=== PATIENT | female | born 1970 ===

== ENCOUNTER 2017-01-16 08:45 | Observation (INO) | payer MEDICAID, OTHER ==
[2017-01-16 08:50] VITALS: BP 141/58; PULSE 81; TEMP 98; O2SAT 100
[2017-01-16 08:51] VITALS: BMI 29.9
--- NOTE | 2017-01-16 10:01 | ED PDOC ---
Lower Extremity Pain/Injury Time Seen by Provider: 01/16/17 09:05 Chief Complaint (Nursing): Lower Extremity Problem/Injury Chief Complaint (Provider): Lower Extremity Problem/Injury History Per: Patient History/Exam Limitations: no limitations Onset/Duration Of Symptoms: Days Current Symptoms Are (Timing): Still Present Severity: Moderate Additional Complaint(s): Patient is a 46 year old female who presents to ED for right upper thigh pain since last night. Patient states she works at [employer], stepped over a box yesterday and felt a pinch that area. Notes no pain initially, pain developed last night, took Motrin 600mg with no relief. This morning pain worsened, unable to sleep last night and difficult walking secondary to pain Past Medical History Reviewed: Historical Data, Nursing Documentation, Vital Signs Vital Signs: Last Vital Signs Temp 98 F 01/16/17 08:50 Pulse 81 01/16/17 08:50 Resp BP 141/58 L 01/16/17 08:50 Pulse Ox 100 01/16/17 08:50 - Medical History PMH: Asthma - Surgical History Surgical History: No Surg Hx - Family History Family History: States: No Known Family Hx - Living Arrangements Living Arrangements: With Family - Home Medications Home Medications: Ambulatory Orders Medication Instructions Recorded Guaifenesin [Mucinex] 1,200 mg PO BID #14 ter 01/19/15 Albuterol HFA [Ventolin HFA 90 2 puff IH Q4 PRN #1 unit 11/12/16 mcg/actuation (8 g)] Azithromycin [Zithromax] 250 mg PO DAILY #6 tab 11/12/16 Ibuprofen [Motrin] 600 mg PO TID PRN #30 tab 11/12/16 Methylprednisolone [Medrol Dose 4 mg PO DAILY #1 packet 11/12/16 Pack (21 tabs)] Cyclobenzaprine [Cyclobenzaprine 10 mg PO TID PRN #15 tab 01/16/17 HCl] Naproxen [Naprosyn] 500 mg PO BID PRN #15 tablet 01/16/17 - Allergies Allergies/Adverse Reactions: Allergies Allergy/AdvReac Type Severity Reaction Status Date / Time No Known Allergies Allergy Verified 11/12/16 13:26 Review of Systems Constitutional: Negative for: Weakness Cardiovascular: Negative for: Chest Pain Respiratory: Negative for: Shortness of Breath Gastrointestinal: Negative for: Nausea, Vomiting Musculoskeletal: Positive for: Leg Pain. Negative for: Back Pain, Foot Pain Skin: Negative for: Rash, Bruising Neurological: Negative for: Weakness, Numbness Physical Exam - Reviewed Nursing Documentation Reviewed: Yes Vital Signs Reviewed: Yes - Physical Exam Appears: Positive for: Non-toxic, No Acute Distress Skin: Positive for: Normal Color, Warm Eye Exam: Positive for: Normal appearance Neck: Positive for: Normal, Painless ROM Gastrointestinal/Abdominal: Positive for: Normal Exam. Negative for: Tenderness Back: Positive for: Normal Inspection. Negative for: Vertebral Tenderness Extremity: Positive for: Normal ROM, Tenderness (right medial inner thigh ). Negative for: Calf Tenderness, Swelling Neurologic/Psych: Positive for: Alert, Oriented. Negative for: Motor/Sensory Deficits - ECG O2 Sat by Pulse Oximetry: 100 (RA) Pulse Ox Interpretation: Normal - Other Rad XR R hip X-Ray: Read By Radiologist (Transverse subcapital lucency in the right femoral head concerning for acute nondisplaced fracture.) - CT Scan/US CT RLE Other Rad Studies (CT/US): Radiology Report Reviewed (No definite CT evidence of acute fracture at the right hip. Well corticated ossicles seen adjacent to the right acetabulum may represent soft tissue calcification or marginal osteophyte formation or less likely old fracture. The possibility of acute fracture at the left acetabulum is less likely. No evidence of significant soft tissue posttraumatic changes.) Medical Decision Making Medical Decision Making: Time: 934 Initial impression: Right high pain Initial plan: -- Urine preg -- Toradol IM and Flexeril PO Scribe Attestation: Documented by Chante Mike acting as a scribe for Leeanna Johnson MD MD Scribe Attestation: All medical record entries made by the Scribe were at my direction and personally dictated by me. I have reviewed the chart and agree that the record accurately reflects my personal performance of the history, physical exam, medical decision making, and the department course for this patient. I have also personally directed, reviewed, and agree with the discharge instructions and disposition. Disposition - Clinical Impression Clinical Impression: Hip sprain - Disposition Disposition: Routine/Home Disposition Time: 14:33 Condition: IMPROVED
--- NOTE | 2017-01-16 11:53 | RAD ---
PROCEDURE: Radiographs of the pelvis and right hip HISTORY: Hip strain COMPARISON: None TECHNIQUE: Frontal view of the pelvis and frontal and lateral views of the right hip were obtained. FINDINGS: There is a transverse subcapital lucency in the right femoral head. The pelvic ring is intact. Bone mineralization is normal. The joint spaces are preserved. The periarticular soft tissues are normal. IMPRESSION: Transverse subcapital lucency in the right femoral head concerning for acute nondisplaced fracture.
--- NOTE | 2017-01-16 14:31 | CT ---
PROCEDURE: CT of the right hip without contrast HISTORY: Abnormal XR COMPARISON: Comparison is made to the previous x-ray of the right hip and pelvis dated 01/16/2017 TECHNIQUE: Axial and reformatted coronal and sagittal CT images of the right hip were obtained without IV contrast administration. FINDINGS: There is no evidence of right femoral head or neck fracture. . There are well corticated ossicles adjacent to the right acetabulum may represent old fracture or more likely soft tissue calcification or osteophyte formation. The possibility of acute fracture at the margin of the acetabulum is less likely. Degenerative changes and small subcortical cystic formation seen specially at the acetabular side of the right hip joint. No CT evidence of significant right hip joint effusion. No evidence of significant soft tissue posttraumatic changes. The visualized portion of the right hip is grossly unremarkable. IMPRESSION: No definite CT evidence of acute fracture at the right hip. Well corticated ossicles seen adjacent to the right acetabulum may represent soft tissue calcification or marginal osteophyte formation or less likely old fracture. The possibility of acute fracture at the left acetabulum is less likely. No evidence of significant soft tissue posttraumatic changes.
== END 2017-01-16 14:31 | disposition home or self-care (01) ==
LOC: H.ER 08:45 → H.EROBSV 11:00
PROVIDERS: ADMIT Emergency Medicine; ATTEND Emergency Medicine
DX: S73.109A Unspecified sprain of unspecified hip, initial encounter (principal); J45.909 Unspecified asthma, uncomplicated
CPT/HCPCS: 73502; 73700; 81025; 96372; 99283; G0378; J1885

== ENCOUNTER 2018-03-08 13:49 | Emergency (ER) | payer MEDICAID, OTHER ==
[2018-03-08 13:50] VITALS: BMI 29.9
[2018-03-08 13:58] VITALS: O2SAT 100
--- NOTE | 2018-03-08 14:18 | ED PDOC ---
HPI: CCC, URI, Sore Throat Time Seen by Provider: 03/08/18 14:01 Chief Complaint (Nursing): ENT Problem Chief Complaint (Provider): ENT Problem History Per: Patient History/Exam Limitations: no limitations Onset/Duration Of Symptoms: Days (x2 days) Current Symptoms Are (Timing): Still Present Location Of Pain: Ear(s) (lef), Headache, Other (sore throat) Additional Complaint(s): 47 y/o female presents to the ED complaining of nasal congestion, throat pain, left ear pain, and headache x 2days. reports decreased appetite because of throat pain. Denies facial pain or any further medical complaints. PMD: none Past Medical History Reviewed: Historical Data, Nursing Documentation, Vital Signs Vital Signs: Last Vital Signs Temp 98.0 F 03/08/18 13:56 Pulse 63 03/08/18 13:56 Resp 16 03/08/18 13:56 BP 119/72 03/08/18 13:56 Pulse Ox 100 03/08/18 15:17 - Medical History PMH: Asthma - Surgical History Surgical History: No Surg Hx - Family History Family History: States: Unknown Family Hx - Home Medications Home Medications: Ambulatory Orders Medication Instructions Recorded Guaifenesin [Mucinex] 1,200 mg PO BID #14 ter 01/19/15 Albuterol HFA [Ventolin HFA 90 2 puff IH Q4 PRN #1 unit 11/12/16 mcg/actuation (8 g)] Azithromycin [Zithromax] 250 mg PO DAILY #6 tab 11/12/16 Ibuprofen [Motrin] 600 mg PO TID PRN #30 tab 11/12/16 Methylprednisolone [Medrol Dose 4 mg PO DAILY #1 packet 11/12/16 Pack (21 tabs)] Cyclobenzaprine [Cyclobenzaprine 10 mg PO TID PRN #15 tab 01/16/17 HCl] Naproxen [Naprosyn] 500 mg PO BID PRN #15 tablet 01/16/17 Cetirizine HCl [Zyrtec] 10 mg PO DAILY #15 tab.rapdis 03/08/18 Ibuprofen [Motrin] 600 mg PO Q8 PRN #21 tab 03/08/18 Pseudoephedrine [Sudafed Tab] 60 mg PO Q6 PRN #24 tab 03/08/18 - Allergies Allergies/Adverse Reactions: Allergies Allergy/AdvReac Type Severity Reaction Status Date / Time No Known Allergies Allergy Verified 03/08/18 13:56 Review of Systems ROS Statement: Except As Marked, All Systems Reviewed And Found Negative (As per HPI, otherwise negative) ENT: Positive for: Ear Pain (left), Nose Congestion, Throat Pain Neurological: Positive for: Headache Physical Exam - Reviewed Nursing Documentation Reviewed: Yes Vital Signs Reviewed: Yes - Physical Exam Appears: Positive for: Non-toxic, No Acute Distress Head Exam: Positive for: ATRAUMATIC Skin: Positive for: Normal Color, Warm, Dry Eye Exam: Positive for: Normal appearance ENT: Positive for: Nasal Congestion, Pharyngeal Erythema (mild). Negative for: Tonsillar Exudate Neck: Positive for: Normal Cardiovascular/Chest: Positive for: Regular Rate, Rhythm. Negative for: Murmur Respiratory: Positive for: Normal Breath Sounds. Negative for: Accessory Muscle Use, Respiratory Distress Back: Positive for: Normal Inspection Extremity: Positive for: Normal ROM Neurologic/Psych: Positive for: Alert, Oriented - ECG O2 Sat by Pulse Oximetry: 100 (RA) Pulse Ox Interpretation: Normal - Progress ED Course And Treament: rapid strep negative toradol 30 mg IM x 1 dose Medical Decision Making Medical Decision Making: Time: 14:08 Initial Impression: nasal congestion Plan: Ketorolac 30mg IV Rapid strep group Reevaluation Scribe Attestation: Documented by Cory Cook acting as a scribe for Eileen Cook MD. Scribe Attestation: All medical record entries made by the Scribe were at my direction and personally dictated by me. I have reviewed the chart and agree that the record accurately reflects my personal performance of the history, physical exam, medical decision making, and the department course for this patient. I have also personally directed, reviewed, and agree with the discharge instructions and disposition. Disposition - Clinical Impression Clinical Impression: Pharyngitis - Patient ED Disposition Is Patient to be Admitted: No - Disposition Referrals: [facility] [Outside] Disposition: Routine/Home Disposition Time: 15:15 Condition: FAIR Prescriptions: Cetirizine HCl [Zyrtec] 10 mg PO DAILY #15 tab.rapdis Ibuprofen [Motrin] 600 mg PO Q8 PRN #21 tab PRN Reason: Pain, Moderate (4-7) Pseudoephedrine [Sudafed Tab] 60 mg PO Q6 PRN #24 tab PRN Reason: Nasal Congestion Instructions: Viral Pharyngitis Forms: [email or web address] [facility] (Fijian), [facility] ED School/Work Excuse
[2018-03-08 15:56] VITALS: BP 128/72; PULSE 81; RESP 18; TEMP 98
== END 2018-03-08 15:56 | disposition home or self-care (01) ==
LOC: H.ER 13:49
DX: J02.9 Acute pharyngitis, unspecified (principal); J45.909 Unspecified asthma, uncomplicated
CPT/HCPCS: 81025; 87070; 87430; 96372; 99282; J1885

== ENCOUNTER 2018-07-26 19:59 | Emergency (ER) | payer MEDICAID, OTHER ==
[2018-07-26 19:59] VITALS: BMI 29.9
[2018-07-26 20:20] VITALS: BP 116/77; PULSE 64; RESP 20; TEMP 99.2; O2SAT 99
--- NOTE | 2018-07-26 20:48 | ED PDOC ---
HPI: Dental Pain/Injury Time Seen by Provider: 07/26/18 20:28 Chief Complaint (Nursing): Dental Pain Chief Complaint (Provider): Dental Pain History Per: Patient History/Exam Limitations: no limitations Current Symptoms Are (Timing): Still Present Additional Complaint(s): George No is a 47 year old female with a past medical history of asthma, who presents to the emergency department complaining of dental pain. She states she broke her tooth x2 weeks ago and now has left sided tooth pain. Patient reports taking Aleeve around 13:00 today with no relief. Patient denies having any fever or chills. PMD: No provider Past Medical History Reviewed: Historical Data, Nursing Documentation, Vital Signs Vital Signs: Last Vital Signs Temp 99.2 F 07/26/18 20:18 Pulse 64 07/26/18 20:18 Resp 20 07/26/18 20:18 BP 116/77 07/26/18 20:18 Pulse Ox 99 07/26/18 20:18 - Medical History PMH: Asthma - Surgical History Surgical History: No Surg Hx - Family History Family History: States: Unknown Family Hx - Home Medications Home Medications: Ambulatory Orders Medication Instructions Recorded Guaifenesin [Mucinex] 1,200 mg PO BID #14 ter 01/19/15 Albuterol HFA [Ventolin HFA 90 2 puff IH Q4 PRN #1 unit 11/12/16 mcg/actuation (8 g)] Ibuprofen [Motrin] 600 mg PO TID PRN #30 tab 11/12/16 Methylprednisolone [Medrol Dose 4 mg PO DAILY #1 packet 11/12/16 Pack (21 tabs)] RX: Azithromycin [Zithromax] 250 mg PO DAILY #6 tab 11/12/16 Cyclobenzaprine [Cyclobenzaprine 10 mg PO TID PRN #15 tab 01/16/17 HCl] Naproxen [Naprosyn] 500 mg PO BID PRN #15 tablet 01/16/17 Cetirizine HCl [Zyrtec] 10 mg PO DAILY #15 tab.rapdis 03/08/18 Ibuprofen [Motrin] 600 mg PO Q8 PRN #21 tab 03/08/18 RX: Pseudoephedrine [Sudafed Tab] 60 mg PO Q6 PRN #24 tab 03/08/18 Penicillin VK [Penicillin VK Tab] 1 tab PO Q6 #40 tab 07/26/18 RX: Naproxen 1 tab PO Q12 PRN #14 tab 07/26/18 - Allergies Allergies/Adverse Reactions: Allergies Allergy/AdvReac Type Severity Reaction Status Date / Time No Known Allergies Allergy Verified 07/26/18 20:18 Review of Systems ROS Statement: Except As Marked, All Systems Reviewed And Found Negative Constitutional: Negative for: Fever, Chills ENT: Positive for: Other (Left tooth pain ) Physical Exam - Reviewed Nursing Documentation Reviewed: Yes Vital Signs Reviewed: Yes - Physical Exam Appears: Positive for: Well Head Exam: Positive for: ATRAUMATIC, NORMOCEPHALIC Skin: Positive for: Normal Color, Warm, Dry Eye Exam: Positive for: Normal appearance, EOMI, PERRL ENT: Positive for: Normal ENT Inspection. Negative for: Other (gingivitis/abscess) Neck: Positive for: Normal, Painless ROM, Supple Cardiovascular/Chest: Negative for: Murmur Respiratory: Positive for: Normal Breath Sounds. Negative for: Respiratory Distress Gastrointestinal/Abdominal: Positive for: Normal Exam, Bowel Sounds, Soft. Negative for: Tenderness Back: Positive for: Normal Inspection. Negative for: L CVA Tenderness, R CVA Tenderness, Vertebral Tenderness Extremity: Positive for: Normal ROM. Negative for: Tenderness, Deformity, Swelling Neurologic/Psych: Positive for: Alert, Oriented (x3) - ECG O2 Sat by Pulse Oximetry: 99 (RA) Pulse Ox Interpretation: Normal - Progress ED Course And Treament: TORADOL 30 MG IM X 1 DOSE PERSISTENT PAIN PERCOCET 5/325 MG X DOSE Medical Decision Making Medical Decision Making: Initial Time: 20:34 Initial Plan: --ED Urine (POC) --Toradol 30 mg IM Scribe Attestation: Documented by Diego Barker, acting as a scribe for Eileen Cook PA-C Provider Scribe Attestation: All medical record entries made by the Scribe were at my direction and personally dictated by me. I have reviewed the chart and agree that the record accurately reflects my personal performance of the history, physical exam, medical decision making, and the department course for this patient. I have also personally directed, reviewed, and agree with the discharge instructions and disposition. Disposition - Clinical Impression Clinical Impression: Pain, dental - Patient ED Disposition Is Patient to be Admitted: No - Disposition Disposition: Routine/Home Disposition Time: 21:00 Condition: FAIR Prescriptions: RX: Naproxen 1 tab PO Q12 PRN #14 tab PRN Reason: Pain, Moderate (4-7) Penicillin VK [Penicillin VK Tab] 1 tab PO Q6 #40 tab Instructions: Dental Pain (DC) Forms: [facility] ED School/Work Excuse
[2018-07-26] MEDS ORDERED: Oxycodone/Acetaminophen 5/325 mg Tab PO ONE (20:55)
[2018-07-26] MEDS ORDERED: Oxycodone/Acetaminophen 5/325 mg Tab ONE (20:55)
== END 2018-07-26 21:00 | disposition home or self-care (01) ==
LOC: H.ER 19:59
DX: K08.89 Other specified disorders of teeth and supporting structures (principal); J45.909 Unspecified asthma, uncomplicated
CPT/HCPCS: 81025; 96372; 99282; J1885